=== PATIENT | male | born 2000 | race Caucasian/White ===

== ENCOUNTER 2020-11-10 10:54 | Outpatient (REF) | payer OTHER, SELFPAY | END 2020-11-10 10:55 | disposition home or self-care (01) | LOC: HO.LAB 10:54 | PROVIDERS: Visit Provider Internal Medicine | DX: Z20.822 Contact with and (suspected) exposure to COVID-19 (principal) | CPT/HCPCS: 36415; C9803; U0003; U0005 ==

== ENCOUNTER 2021-01-06 08:49 | Outpatient (REF) | payer OTHER, SELFPAY ==
[2021-01-06 09:15] LABS: COVID-19 Test Negative (Negative)
== END 2021-01-06 08:50 | disposition home or self-care (01) ==
LOC: HO.LAB 08:49
PROVIDERS: Visit Provider Internal Medicine
DX: Z20.822 Contact with and (suspected) exposure to COVID-19 (principal)
CPT/HCPCS: 36415; 87635; C9803

== ENCOUNTER 2021-10-25 12:59 | Emergency (ER) | payer OTHER, SELFPAY ==
[2021-10-25 13:48] VITALS: BP 139/76; PULSE 78; RESP 18; TEMP 36.6; O2SAT 98; BMI 22.3
--- NOTE | 2021-10-25 15:17 | ED_ITS ---
HPI - General Adult General Chief complaint: General Medical Stated complaint: rash Time Seen by Provider: 10/25/21 15:17 History of Present Illness HPI narrative: Patient complains of raised itchy rash for several days, hip he has been taking Benadryl intermittently with no relief, no shortness of breath no throat swelling no vomiting no difficulty breathing or swallowing Related Data Previous Rx's Medication Instructions Recorded cetirizine 10 mg capsule 10 mg PO DAILY PRN #14 cap 10/25/21 prednisone 20 mg tablet 60 mg PO DAILY 4 Days #12 tab 10/25/21 Allergies Allergy/AdvReac Type Severity Reaction Status Date / Time No Known Allergies Allergy Verified 10/25/21 13:48 Review of Systems Review of Systems: Positive for rash Negatives are no fever no chills no dizziness no weakness no headache no runny nose no red eyes no discharge from eyes no difficulty breathing or swallowing no sore throat no swelling of the throat or tongue no chest pain no shortness of breath no wheezing no nausea no vomiting no extremity pains Yes all other systems are reviewed and are negative PMFSH Past Medical History Source: nursing notes reviewed Medical History (Updated 10/26/21 @ 00:01 by Anju Bergman) Asthma Social History Social History Advance Directives: No Advance Directives Information Provided: No Physical Exam ED Vital Signs: Vital Signs - 24 hr 10/25/21 13:48 Temperature 98 F Pulse Rate 78 Respiratory Rate 18 Blood Pressure 139/76 Pulse Oximetry 98 BMI result Body Mass Index 22.3 General appearance comfortable relax no acute distress The eyes no redness or discharge The pharynx no redness swelling or exudate, no tongue swelling no uvula swelling, membranes are moist no drooling and voice is normal The neck is supple Chest is clear to auscultation with full symmetric equal breath sounds no wheezing Heart no murmur Abdomen soft nontender Extremities full range of motion x4 Skin exam there are widespread hives over the body, skin is otherwise intact w ith no tenderness no weeping of the rash no petechiae no purpura Course Course Course Narrative: Well-appearing patient with hives is treated and discharged Discharge Plan Discharge Clinical Impression: Hives Patient Disposition: Home, Self-Care Additional Instructions: You can use cetirizine once a day every day as long as hives last, we are also adding prednisone a steroid for 5 days At night if you are still itchy it safe to take 2 Benadryl stole of 50 mg Follow with primary care doctor as needed Return to the ER any time any worse condition or any concerns Prescriptions: New cetirizine 10 mg capsule 10 mg PO DAILY PRN (Reason: allergy symptoms) Qty: 14 0RF prednisone 20 mg tablet 60 mg PO DAILY 4 Days Qty: 12 0RF Interventions: ED Discharge Assessment Last Done: 10/25/21 15:29 Discharge Date/Time: 10/25/21 15:29
[2021-10-25] MEDS: Loratadine 10 MG TABLET PO (15:26)
[2021-10-25] MEDS: predniSONE 20 MG TABLET 60 MG PO (15:26)
== END 2021-10-25 15:29 | disposition home or self-care (01) ==
PROVIDERS: Emergency Provider Emergency Medicine Emergency Medical Services
DX: L50.0 Allergic urticaria (principal); R21 Rash and other nonspecific skin eruption
CPT/HCPCS: 99283